=== PATIENT | female | born 1930 | race Hispanic/Latino ===

== ENCOUNTER 2017-09-04 13:14 | Inpatient (IN) | payer SELFPAY ==
[~2017-09-04] VITALS: Ht 157.5 cm; Wt 61.1 kg
[~2017-09-04 13:14] MED LIST: DOCU100C19 PO; LEVO50TA11 PO; MECL-111 PO; POTA-9 PO
[2017-09-04 14:22] LABS: APPEARANCE,URINE SL CLOUDY (CLEAR); BILIRUBIN,URINE NEGATIVE (NEGATIVE); COLOR,URINE YELLOW (YELLOW); GLUCOSE, URINE (UA) NEGATIVE (NEGATIVE); KETONES,URINE NEGATIVE (NEGATIVE); LEUKOCYTE ESTERASE ,URINE NEGATIVE (NEGATIVE); NITRATE,URINE NEGATIVE (NEGATIVE); OCCULT BLOOD,URINE LARGE (NEGATIVE); PROTEIN,URINE TRACE (NEGATIVE); UROBILINOGEN,URINE 0.2 mg/dL (0.2-1.0)
[2017-09-04 14:29] LABS: BACTERIA,URINE Rare /HPF (None Seen); SQUAMOUS EPITHELIAL CELL,UR Many /LPF (0-2); WBC,URINE 0-1 /HPF (0-1)
[2017-09-04 14:47] LABS: HEMATOCRIT 35.1 % (36-48); MEAN CORPUSCULAR HEMOGLOBIN 32.1 pg (27.0-33.0); MEAN CORPUSCULAR HGB CONC 33.8 g/dL (32.0-36.0); NUCLEATED RED BLOOD CELLS 0.1 % (0.0-0.19); PLATELET COUNT (AUTO) 70 K/uL (130-400); RED BLOOD CELL COUNT(AUTO) 3.69 MIL/uL (4.00-5.50); RED CELL DISTRIBUTION WIDTH 13.8 % (11.0-15.5); WHITE BLOOD COUNT (AUTO) 2.5 K/uL (4.8-10.8)
[2017-09-04 15:06] LABS: POTASSIUM 3.1 mmol/L (3.5-5.1)
[2017-09-04] MEDS ORDERED: SODIUM CHLORIDE 0.9% 1000ML 1,000 ML IV ONE (15:15)
[2017-09-04] MEDS ORDERED: CEFTRIAXONE SODIUM 1 GM ONE ×2 (15:15→15:21)
[2017-09-04 15:24] LABS: ALBUMIN 2.6 g/dL (3.5-5.0); BILIRUBIN,DIRECT 0.2 mg/dL (0.0-0.3); BILIRUBIN,TOTAL 0.5 mg/dL (0.2-1.0); TOTAL PROTEIN, SERUM 7.3 g/dL (6.0-8.3)
[2017-09-04] MEDS ORDERED: VANCOMYCIN 1GM+NS 250ML 250 ML IV ONE (15:27)
[2017-09-04 15:28] LABS: BAND NEUTROPHILS % (MANUAL) 10 % (0-2); LYMPHOCYTES % (MANUAL) 34 % (22-44); MONOCYTES % (MANUAL) 5 % (2-9); REACTIVE LYMPHOCYTES 2 % (0-0); SEGMENTED NEUTROPHILS % 49 % (40-70)
[2017-09-04 15:29] LABS: MAN.DIFF COMMENT-IMPRESSION MANUAL DIFFERENTIAL
[2017-09-04] MEDS ORDERED: OSELTAMIVIR PHOSPHATE 75 MG CAP ONE (15:29)
[2017-09-04] MEDS ORDERED: LEVOFLOXACIN 500 MG/D5W 100 ML 100 ML ONE (16:00)
[2017-09-04] MEDS ORDERED: IPRATROPIUM/ALBUTEROL SULFATE 3 ML SOLUTION IH ONE (16:22)
[2017-09-04] MEDS ORDERED: ACETAMINOPHEN 325 MG TAB ONE (19:27)
[2017-09-04] MEDS ORDERED: HYDRALAZINE HCL 20 MG/ML VIAL IV PRN (23:30)
[2017-09-04] MEDS ORDERED: GUAIFENESIN-DM 200/20 MG 10 ML PO PRN (23:30)
[2017-09-04] MEDS ORDERED: POTASSIUM CHLORIDE 20MEQ/100ML 100 ML IV PRN (23:30)
[2017-09-04] MEDS ORDERED: ONDANSETRON HCL 4 MG/2 ML VIAL IV PRN (23:30)
[2017-09-04] MEDS ORDERED: LIDOCAINE HCL-MPF 1% 2ML VIAL IVP PRN (23:30)
[2017-09-04] MEDS ORDERED: POTASSIUM CHLORIDE 20 MEQ ERTAB PO PRN (23:30)
[2017-09-04] MEDS ORDERED: ACETAMINOPHEN 325 MG TAB PO PRN (23:30)
[2017-09-05] MEDS ORDERED: ACETAMINOPHEN 325 MG TAB ONE (00:50)
[2017-09-05] MEDS ORDERED: IPRATROPIUM/ALBUTEROL SULFATE 3 ML SOLUTION IH ONE ×3 (01:01→12:05)
[2017-09-05] MEDS: IPRATROPIUM/ALBUTEROL SULFATE 3 ML SOLUTION IH SCH ×4 (06:31→19:45)
[2017-09-05 06:55] LABS: MEAN CORPUSCULAR HEMOGLOBIN 32.4 pg (27.0-33.0); MEAN CORPUSCULAR HGB CONC 33.9 g/dL (32.0-36.0); MEAN CORPUSCULAR VOLUME 95.6 fL (79-99); NUCLEATED RED BLOOD CELLS 0.3 % (0.0-0.19); PLATELET COUNT (AUTO) 69 K/uL (130-400); RED BLOOD CELL COUNT(AUTO) 3.35 MIL/uL (4.00-5.50); WHITE BLOOD COUNT (AUTO) 2.1 K/uL (4.8-10.8)
[2017-09-05 07:09] LABS: MAGNESIUM 1.5 mg/dL (1.80-2.40)
[2017-09-05 07:10] LABS: POTASSIUM 2.6 mmol/L (3.5-5.1)
[2017-09-05] MEDS ORDERED: SODIUM CHLORIDE 0.9% 1000ML 1,000 ML IV ONE (07:18)
[2017-09-05] MEDS ORDERED: LIDOCAINE HCL-MPF 1% 2ML VIAL ONE ×2 (08:36→12:22)
[2017-09-05] MEDS ORDERED: POTASSIUM CHLORIDE 20MEQ/100ML 100 ML IV ONE ×2 (08:36→12:22)
[2017-09-05] MEDS ORDERED: POTASSIUM CHLORIDE 10% ELIXIR 20 MEQ/15 ML UDCUP ONE ×2 (08:36→11:05)
[2017-09-05] MEDS ORDERED: PANTOPRAZOLE SODIUM 40 MG TABLET.DR PO ONE (08:44)
[2017-09-05] MEDS ORDERED: OSELTAMIVIR PHOSPHATE 75 MG CAP ONE (08:45)
[2017-09-05] MEDS: OSELTAMIVIR PHOSPHATE 75 MG CAP PO SCH ×2 (09:00→20:50)
[2017-09-05] MEDS: PANTOPRAZOLE SODIUM 40 MG TABLET.DR PO SCH (09:00)
[2017-09-05] MEDS ORDERED: HYDRALAZINE HCL 20 MG/ML VIAL ONE (12:21)
[2017-09-05] MEDS: SODIUM CHLORIDE 0.9% 1000ML 1,000 ML IV SCH (12:46)
[2017-09-05 14:20] VITALS: BP 140/61
[2017-09-05] MEDS ORDERED: FLUT44HFA IH (14:59)
[2017-09-05] MEDS ORDERED: CHOL100018 PO (14:59)
[2017-09-05] MEDS ORDERED: POTA-9 PO (14:59)
[2017-09-05] MEDS ORDERED: LEVO25TA54 PO (14:59)
[2017-09-05 16:00] VITALS: BP 140/63
[2017-09-05] MEDS: LEVOFLOXACIN 500 MG/D5W 100 ML 100 ML IV SCH (18:34)
[2017-09-05 20:00] VITALS: BP 130/63
[2017-09-05] MEDS ORDERED: MAGNESIUM 2GM PREMIX 50ML 50 ML IV SCH (21:30)
[2017-09-05] MEDS: POTASSIUM CHLORIDE 10% ELIXIR 20 MEQ/15 ML UDCUP PO PRN ×2 (22:33→23:52)
[2017-09-06] VITALS: BP 124/58
[2017-09-06] MEDS: IPRATROPIUM/ALBUTEROL SULFATE 3 ML SOLUTION IH SCH ×4 (00:18→19:30)
[2017-09-06 04:00] VITALS: BP 126/51
[2017-09-06 04:15] LABS: HEMATOCRIT 30.4 % (36-48); MEAN CORPUSCULAR HEMOGLOBIN 32.1 pg (27.0-33.0); MEAN CORPUSCULAR HGB CONC 34.2 g/dL (32.0-36.0); NUCLEATED RED BLOOD CELLS 0.3 % (0.0-0.19); PLATELET COUNT (AUTO) 72 K/uL (130-400); RED BLOOD CELL COUNT(AUTO) 3.24 MIL/uL (4.00-5.50); RED CELL DISTRIBUTION WIDTH 14.3 % (11.0-15.5); WHITE BLOOD COUNT (AUTO) 2.1 K/uL (4.8-10.8)
[2017-09-06 04:34] LABS: CREATININE 0.9 mg/dL (0.5-1.5); MAGNESIUM 2.4 mg/dL (1.80-2.40); POTASSIUM 4.3 mmol/L (3.5-5.1)
[2017-09-06 08:00] VITALS: BP 135/61
[2017-09-06] MEDS: OSELTAMIVIR PHOSPHATE 75 MG CAP PO SCH ×2 (09:26→22:47)
[2017-09-06] MEDS: PANTOPRAZOLE SODIUM 40 MG TABLET.DR PO SCH (09:26)
[2017-09-06] MEDS: SODIUM CHLORIDE 0.9% 1000ML 1,000 ML IV SCH ×3 (09:30→23:17)
[2017-09-06 12:00] VITALS: BP 146/54
[2017-09-06] MEDS: LEVOFLOXACIN 500 MG/D5W 100 ML 100 ML IV SCH (15:53)
[2017-09-06 16:00] VITALS: BP 126/64
[2017-09-06 20:00] VITALS: BP 139/65
[2017-09-07] VITALS (7 sets, daily range): BP systolic 118–161; BP diastolic 49–77
[2017-09-07] MEDS: IPRATROPIUM/ALBUTEROL SULFATE 3 ML SOLUTION IH SCH ×5 (00:47→23:27)
[2017-09-07] MEDS: OSELTAMIVIR PHOSPHATE 75 MG CAP PO SCH ×2 (10:26→20:58)
[2017-09-07] MEDS: PANTOPRAZOLE SODIUM 40 MG TABLET.DR PO SCH (10:26)
[2017-09-07] MEDS: LEVOFLOXACIN 500 MG/D5W 100 ML 100 ML IV SCH (16:25)
[2017-09-07] MEDS: SODIUM CHLORIDE 0.9% 1000ML 1,000 ML IV SCH (20:59)
[2017-09-08] VITALS: BP 148/65
[2017-09-08 04:00] VITALS: BP 132/57
[2017-09-08] MEDS: IPRATROPIUM/ALBUTEROL SULFATE 3 ML SOLUTION IH SCH ×2 (06:19→11:30)
[2017-09-08 08:00] VITALS: BP 133/57
[2017-09-08] MEDS: OSELTAMIVIR PHOSPHATE 75 MG CAP PO SCH (08:58)
[2017-09-08] MEDS: SODIUM CHLORIDE 0.9% 1000ML 1,000 ML IV SCH (08:58)
[2017-09-08] MEDS: PANTOPRAZOLE SODIUM 40 MG TABLET.DR PO SCH (08:58)
[2017-09-08] MEDS ORDERED: LEVO500T2 PO (12:35)
== END 2017-09-08 14:05 | disposition home or self-care (01) | DRG 194 ==
LOC: EDH 13:14 → EDHIP 13:15 → 3CH 09-05 14:11
PROVIDERS: ADMIT Family Medicine; ATTEND Family Medicine
DX: J10.08 Influenza due to other identified influenza virus with other specified pneumonia (principal); J90 Pleural effusion, not elsewhere classified; D70.9 Neutropenia, unspecified; D69.6 Thrombocytopenia, unspecified; M62.82 Rhabdomyolysis; W01.0XXA Fall on same level from slipping, tripping and stumbling without subsequent striking against object, initial encounter; E03.9 Hypothyroidism, unspecified; E87.6 Hypokalemia; I10 Essential (primary) hypertension; M19.90 Unspecified osteoarthritis, unspecified site; Y93.89 Activity, other specified; Y92.89 Other specified places as the place of occurrence of the external cause; Y99.8 Other external cause status; Z82.49 Family history of ischemic heart disease and other diseases of the circulatory system; Z83.3 Family history of diabetes mellitus; Z88.8 Allergy status to other drugs, medicaments and biological substances
CPT/HCPCS: 36415; 71045; 71250; 80048; 80076; 81001; 82550; 83605; 83735; 84132; 84484; 85025; 85027; 87040; 87088; 87804; 93005; 94640; 94664; 97039; J0360; J0696; J1956; J3370; J3475; J3480; J3490; J7030

== ENCOUNTER 2018-08-28 16:31 | Emergency (ER) | payer OTHER ==
[~2018-08-28 16:31] MED LIST changes: +CHOL100018 PO; +DOCU-282 PO; -DOCU100C19 PO; +FLUT44HFA IH; +LEVO25TA54 PO; +LEVO500T2 PO
[2018-08-28] MEDS ORDERED: CLINDAMYCIN 600 MG/D5% WATER 50 ML IV ONE (17:03)
[2018-08-28 17:08] LABS: BASOPHILS % (AUTO) 1.1 % (0.0-5.0); EOSINOPHILS % (AUTO) 2.3 % (0.0-8.0); HEMATOCRIT 35.7 % (36-48); LYMPHOCYTES % (AUTO) 41.1 % (21.0-51.0); MEAN CORPUSCULAR HEMOGLOBIN 31.1 pg (27.0-33.0); MEAN CORPUSCULAR HGB CONC 32.7 g/dL (32.0-36.0); MEAN CORPUSCULAR VOLUME 95.1 fL (79-99); MONOCYTES % (AUTO) 16.1 % (3.0-13.0); NEUTROPHILS % (AUTO) 39.4 % (40.0-77.0); NUCLEATED RED BLOOD CELLS 0.2 % (0.0-0.19); PLATELET COUNT (AUTO) 141 K/uL (130-400); RED BLOOD CELL COUNT(AUTO) 3.75 MIL/uL (4.00-5.50); RED CELL DISTRIBUTION WIDTH 13.6 % (11.0-15.5)
[2018-08-28 17:18] LABS: CREATININE 0.9 mg/dL (0.5-1.5); POTASSIUM 3.9 mmol/L (3.5-5.1)
[2018-08-28 17:23] LABS: ALBUMIN 2.6 g/dL (3.5-5.0); BILIRUBIN,TOTAL 0.5 mg/dL (0.2-1.0); TOTAL PROTEIN, SERUM 8.4 g/dL (6.0-8.3)
[2018-08-28 17:59] LABS: BAND NEUTROPHILS % (MANUAL) 6 % (0-2); BASOPHILS % (MANUAL) 1 % (0-2); EOSINOPHILS % (MANUAL) 5 % (1-6); LYMPHOCYTES % (MANUAL) 37 % (22-44); MONOCYTES % (MANUAL) 10 % (2-9); REACTIVE LYMPHOCYTES 2 % (0-0); SEGMENTED NEUTROPHILS % 39 % (40-70)
[2018-08-28 18:00] LABS: MAN.DIFF COMMENT-IMPRESSION MANUAL DIFFERENTIAL
[2018-08-28 18:02] LABS: PLATELET MORPHOLOGY COMMENT LARGE PLTS PRESENT
== END 2018-08-28 19:56 | disposition home or self-care (01) ==
LOC: EDH 16:31
DX: S90.121A Contusion of right lesser toe(s) without damage to nail, initial encounter (principal); I10 Essential (primary) hypertension; E78.5 Hyperlipidemia, unspecified; M19.90 Unspecified osteoarthritis, unspecified site; Z88.6 Allergy status to analgesic agent; W22.8XXA Striking against or struck by other objects, initial encounter; Y93.89 Activity, other specified; Y92.89 Other specified places as the place of occurrence of the external cause; Y99.8 Other external cause status
CPT/HCPCS: 36415; 73630; 80053; 85025; 96365; 99284; J3490

== ENCOUNTER 2018-08-30 20:21 | Emergency (ER) | payer OTHER ==
[2018-08-30 20:40] LABS: APPEARANCE,URINE CLOUDY (CLEAR); BILIRUBIN,URINE NEGATIVE (NEGATIVE); COLOR,URINE YELLOW (YELLOW); GLUCOSE, URINE (UA) NEGATIVE (NEGATIVE); KETONES,URINE 5 mg/dL (NEGATIVE); LEUKOCYTE ESTERASE ,URINE NEGATIVE (NEGATIVE); NITRATE,URINE NEGATIVE (NEGATIVE); OCCULT BLOOD,URINE TRACE-INTACT (NEGATIVE); PROTEIN,URINE NEGATIVE (NEGATIVE); UROBILINOGEN,URINE 0.2 mg/dL (0.2-1.0)
[2018-08-30 20:47] LABS: BACTERIA,URINE Few /HPF (None Seen); RBC,URINE 0-1 /HPF (0-1); SQUAMOUS EPITHELIAL CELL,UR Few /HPF (0-2); WBC,URINE 0-1 /HPF (0-1)
[2018-08-30 20:48] LABS: HYALINE CASTS, URINE 0-1 /LPF (0-1 /LPF); MUCUS,URINE Rare LPF (None Seen)
[2018-08-30 20:53] LABS: BASOPHILS % (AUTO) 0.9 % (0.0-5.0); EOSINOPHILS % (AUTO) 2.4 % (0.0-8.0); HEMATOCRIT 36.1 % (36-48); LYMPHOCYTES % (AUTO) 34.4 % (21.0-51.0); MEAN CORPUSCULAR HEMOGLOBIN 32.1 pg (27.0-33.0); MEAN CORPUSCULAR HGB CONC 33.6 g/dL (32.0-36.0); MEAN CORPUSCULAR VOLUME 95.8 fL (79-99); MONOCYTES % (AUTO) 12.2 % (3.0-13.0); NEUTROPHILS % (AUTO) 50.1 % (40.0-77.0); NUCLEATED RED BLOOD CELLS 0.1 % (0.0-0.19); PLATELET COUNT (AUTO) 152 K/uL (130-400); RED BLOOD CELL COUNT(AUTO) 3.77 MIL/uL (4.00-5.50); RED CELL DISTRIBUTION WIDTH 13.7 % (11.0-15.5); WHITE BLOOD COUNT (AUTO) 3.4 K/uL (4.8-10.8)
[2018-08-30 21:04] LABS: CREATININE 1.3 mg/dL (0.5-1.5); POTASSIUM 3.8 mmol/L (3.5-5.1)
[2018-08-30 21:05] LABS: INR 1.06 (0.85-1.15); PARTIAL THROMBOPLASTIN TIME 30.2 SEC (26.3-35.5); PROTHROMBIN TIME 11.1 SEC (9.6-11.6)
[2018-08-30 21:08] LABS: ALBUMIN 2.8 g/dL (3.5-5.0); BILIRUBIN,TOTAL 0.5 mg/dL (0.2-1.0); TOTAL PROTEIN, SERUM 8.8 g/dL (6.0-8.3)
[2018-08-30 21:19] LABS: B-TYPE NATRIURETIC PEPTIDE 151 pg/mL (0-100)
[2018-08-30 21:59] LABS: ERYTHROCYTE SEDIMENTATION RATE 80 MM/HR (0-30)
[2018-08-30] MEDS ORDERED: ACETAMINOPHEN 325 MG TAB ONE (22:18)
[2018-08-30] MEDS ORDERED: CEPHALEXIN 500 MG CAPSULE ONE (22:18)
== END 2018-08-30 23:00 | disposition home or self-care (01) ==
LOC: EDH 20:21
DX: L03.115 Cellulitis of right lower limb (principal); I10 Essential (primary) hypertension; E78.5 Hyperlipidemia, unspecified; M19.90 Unspecified osteoarthritis, unspecified site; Z88.6 Allergy status to analgesic agent
CPT/HCPCS: 36415; 71045; 73620; 80053; 81001; 82550; 83880; 84484; 85025; 85610; 85651; 85730; 86140; 93005; 93971